=== PATIENT | female | born 1990 | race Two or more races ===

== ENCOUNTER 2024-12-15 10:56 | Emergency (ER) | payer MEDICAID, OTHER ==
[~2024-12-15] VITALS: Ht 162.6 cm; Wt 58.3 kg
[2024-12-15 12:14] VITALS: BP 111/80; PULSE 86; RESP 13; TEMP 98.5; O2SAT 100
[2024-12-15] MEDS ORDERED: KETOROLAC TROMETH 60MG/2ML VIAL IM ONE (12:45)
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
[2024-12-15] MEDS: IBUPROFEN 600 MG TAB PO ONE (13:15)
[2024-12-15] MEDS ORDERED: NAPR-746 PO (13:26)
[2024-12-15] MEDS ORDERED: METH-1181 PO (13:26)
== END 2024-12-15 13:24 | disposition home or self-care (01) ==
LOC: ER 10:56
DX: S16.1XXA Strain of muscle, fascia and tendon at neck level, initial encounter (principal); M47.812 Spondylosis without myelopathy or radiculopathy, cervical region; F41.1 Generalized anxiety disorder; X50.1XXA Overexertion from prolonged static or awkward postures, initial encounter; Y93.89 Activity, other specified; Y92.89 Other specified places as the place of occurrence of the external cause; Y99.8 Other external cause status
CPT/HCPCS: 72040; J1885

== ENCOUNTER 2025-02-13 10:41 | Emergency (ER) | payer MEDICAID, OTHER ==
[~2025-02-13] VITALS: Ht 162.6 cm; Wt 59.9 kg
[~2025-02-13 10:41] MED LIST: METH-1181 PO; NAPR-746 PO
[2025-02-13 11:55] VITALS: BP 122/79; PULSE 82; RESP 18; TEMP 98.9; O2SAT 97
[2025-02-13] MEDS ORDERED: TRAM50TA2 PO (12:55)
[2025-02-13] MEDS ORDERED: GABA-1308 PO (12:55)
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
== END 2025-02-13 13:06 | disposition home or self-care (01) ==
LOC: ER 10:41
DX: M48.02 Spinal stenosis, cervical region (principal); M54.16 Radiculopathy, lumbar region; F41.9 Anxiety disorder, unspecified; Z79.899 Other long term (current) drug therapy

== ENCOUNTER 2025-07-12 04:14 | Observation (INO) | payer MEDICAID ==
[~2025-07-12 04:14] MED LIST changes: +GABA-1308 PO; +TRAM50TA2 PO
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
--- NOTE | 2025-07-12 06:40 | DVH ---
LIMITED OB ULTRASOUND > 14 WKS: HISTORY: cramping, back pain, vaginal pressure TECHNIQUE: Multiple real-time grayscale images of the gravid uterus with duplex Doppler color flow an d M-mode spectral analysis. FINDINGS: Intrauterine noted measuring average ultrasound age 24 days 1 week based on composite avera ges of the BPD, head circumference, abdominal circumference and femur length. measurements are as follows: BPD: 6.1 cm, 24 weeks 6 days HC: 21.97 cm, 24 weeks 0 days AC: 18.3 cm, 23 weeks 1 day FL: 4.4 cm, 24 weeks 3 days Estimated weight 629 grams heart rate 148 beats per minute MVP measures 6.1 cm Cervix measures 4.5 cm in length and appears closed. Transverse right Presentation Posterior Placenta without previa or abruption. IMPRESSION: 1. Intrauterine gestation measuring 24 weeks 1 day with positive heart rate. No acute abnormali ty.
== END 2025-07-12 06:33 | disposition home or self-care (01) ==
LOC: LDRP 04:14
PROVIDERS: ADMIT Obstetrics & Gynecology; ATTEND Obstetrics & Gynecology
DX: O99.891 Other specified diseases and conditions complicating pregnancy (principal); M54.9 Dorsalgia, unspecified; R25.2 Cramp and spasm; Z3A.23 23 weeks gestation of pregnancy; Z98.890 Other specified postprocedural states
CPT/HCPCS: 76805; 81002; 94760; G0378